=== PATIENT | male | born 1985 | race American Indian/Alaskan Native ===

== ENCOUNTER 2017-04-08 18:25 | Emergency (ER) | payer MEDICAID ==
[~2017-04-08] VITALS: Ht 177.8 cm; Wt 78.0 kg
[2017-04-08 18:48] VITALS: BP 104/64
== END 2017-04-08 19:28 | disposition home or self-care (01) ==
LOC: ED 19:17
DX: F12.10 Cannabis abuse, uncomplicated (principal); F15.10 Other stimulant abuse, uncomplicated; R00.0 Tachycardia, unspecified; M19.90 Unspecified osteoarthritis, unspecified site; Z93.3 Colostomy status
CPT/HCPCS: 99283

== ENCOUNTER 2020-11-10 19:50 | Emergency (ER) | payer MEDICAID ==
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
--- NOTE | 2020-11-10 20:25 | NUR ---
Patient/[facility] given discharge instructions and they have confirmed that they understand the instructions. Patient ambulatory with steady gait in custody.
== END 2020-11-10 20:27 | disposition home or self-care (01) ==
LOC: ED 20:05
DX: S00.81XA Abrasion of other part of head, initial encounter (principal); S09.90XA Unspecified injury of head, initial encounter; F17.210 Nicotine dependence, cigarettes, uncomplicated; J45.909 Unspecified asthma, uncomplicated; M19.90 Unspecified osteoarthritis, unspecified site; W22.8XXA Striking against or struck by other objects, initial encounter; Y93.89 Activity, other specified; Y92.89 Other specified places as the place of occurrence of the external cause; Y99.8 Other external cause status
CPT/HCPCS: 99283; 99406